=== PATIENT | male | born 2000 | race Caucasian/White ===

== ENCOUNTER 2019-02-13 06:31 | Day surgery (SDC) | payer OTHER ==
[2019-02-13] MEDS ORDERED: fentaNYL 100 MCG/2 ML SDV IV ONE (06:32)
[2019-02-13] MEDS ORDERED: Lactated Ringers 1,000 ML IV ONE (06:32)
[2019-02-13] MEDS ORDERED: Propofol 200 MG/20 ML SDV IV ONE (06:32)
[2019-02-13] MEDS ORDERED: Midazolam 1 MG/ML 2 ML SDV IV ONE (06:32)
[2019-02-13] MEDS ORDERED: Ondansetron 4 MG/2 ML SDV IVPUSH ONE (06:32)
[2019-02-13] MEDS ORDERED: Ketorolac 30 MG/ML SDV IVPUSH ONE (06:32)
[2019-02-13] MEDS ORDERED: Rocuronium 50 MG/5 ML Vial IV ONE (06:32)
[2019-02-13] MEDS ORDERED: Lactated Ringers 1,000 ML IV SCH (06:45)
[2019-02-13] MEDS ORDERED: ceFAZolin 2 GM in Premix Bag 1 BAG IV ONE (08:00)
[2019-02-13] MEDS ORDERED: Bupivacaine 0.5% 30 ML SDV INJECT ONE (08:20)
[2019-02-13] MEDS ORDERED: Lidocaine 1% with EPINEPHrine 1:100,000 20 ML MDV INJECT ONE (08:20)
[2019-02-13] MEDS ORDERED: Acetaminophen/HYDROcodone 325-5 MG Tab PO PRN (09:16)
--- NOTE | 2019-02-13 09:16 | PCM.OPNOTE ---
- General Post-Op/Procedure Note Date of Surgery/Procedure: 02/13/19 Operative Procedure(s): lih repair with mesh Findings: indrect hernia Pre Op Diagnosis: lih without obstruction or gangrene Post-Op Diagnosis: Same Anesthesia Technique: General LMA, Local (8 ml 1 % lido with epi/0.5% buvipicaine) Primary Surgeon: Rodney Greenberg Anesthesia Provider: Ken Lopez Pathology: none Complications: None Condition: Good Free Text/Narrative:: see dictation
--- NOTE | 2019-02-13 15:12 | OR ---
DATE OF OPERATION: 02/13/2019 SURGEON: Rodney Greenberg MD PROCEDURE PERFORMED: Left inguinal hernia repair with mesh. PREOPERATIVE DIAGNOSIS: Symptomatic left inguinal hernia without obstruction or gangrene. POSTOPERATIVE DIAGNOSIS: Symptomatic left inguinal hernia without obstruction or gangrene. INDICATIONS FOR PROCEDURE: This is a 18-year-old white male with a reducible left inguinal hernia. He was offered and accepted repair. INTRAOPERATIVE FINDINGS: A large indirect hernia was identified. This was repaired with a Phasix plug and patch, size large. Reference #[id number], lot number [id number] with an expiration date 11/07/2019. ANESTHESIA: Total of 8 mL of 1:1 mixture of 1% lidocaine with epinephrine and 0.5% bupivacaine was used. DESCRIPTION OF OPERATION: After an excellent LMA anesthetic was administered, the patient was prepped and draped in the usual sterile manner. Local was used to inject just medial to the anterior-superior iliac spine where a small skin wheal was raised. Then, a deep intramuscular injection was carried out for approximately 3 mL. More local was then used to infiltrate our planned incision site which was in the inguinal region with an intercept point approximately mcfp between the anterior-superior iliac spine and the symphysis pubis along the inguinal ligament midway. An incision was then made with a #15 scalpel blade. Superficial inferior epigastric vessels were clamped, divided, and tied with 2-0 Vicryl ties. The aponeurosis of the external oblique was carried out. Local was injected underneath the aponeurosis. A melody was made through the aponeurosis and carried out through the external ring. Cord was mobilized. The ilioinguinal nerve was also identified and kept out of the operative field. Cord was skeletonized and a large cord lipoma was reduced. In addition, the floor of the inguinal canal looked like it was starting to attenuate, so the transversalis fascia was imbricated to the inguinal ligament with interrupted 0 Ethibond. A large Phasix plug was then inserted into the indirect defect, tacked into position with interrupted 2-0 Vicryl ties. The overlay mesh was then placed on the reconstructive floor, starting at the symphysis pubis, using a running 2-0 Vicryl was tacked to the edge of the inguinal ligament. SorbaFix was then used to tack the mesh to the floor of the canal. A keyhole had been cut and the mesh was wrapped around the spermatic cord. Cut edges were reapproximated using a running 2-0 Vicryl as well. The area was irrigated. On careful inspection, it was readily apparent that the ilioinguinal nerve would rub up against the mesh and probably cause postop pain. This, therefore was clamped, divided, and tied with a 2-0 Vicryl tie to prevent neuroma and postoperative chronic pain issues in the groin. This had been discussed with the patient prior to the surgery in the preoperative evaluation. Area was irrigated. Aponeurosis was closed using a running 3-0 Vicryl. Galilea's was reapproximated using a running 3-0 Vicryl and the skin was closed with a running subcu 4-0 Vicryl. Needle, sponge, and instrument counts were reported as correct. The patient was taken to recovery room in good condition. /[id number] /ALISIA
== END 2019-02-13 10:55 | disposition home or self-care (01) ==
LOC: FB.SDS 06:31
PROVIDERS: ATTEND Surgery
DX: K40.90 Unilateral inguinal hernia, without obstruction or gangrene, not specified as recurrent (principal)
CPT/HCPCS: 49505; 94150; C1713; C1781; J0690; J1885; J2250; J2405; J2704; J3010; J3490; J7120